=== PATIENT | male | born 1995 | race African-American/Black ===

== ENCOUNTER 2018-11-17 10:34 | Emergency (ER) | payer MEDICAID ==
[~2018-11-17] VITALS: Ht 167.6 cm; Wt 82.0 kg
[2018-11-17] MEDS ORDERED: LIDOCAINE HCL/PF 1% 10 MG/ML 5ML VIAL IJ ONE (11:15)
[2018-11-17] MEDS ORDERED: BACITRACIN ZINC OINT UDPKT TOP ONE (11:15)
[2018-11-17] MEDS ORDERED: HYDROCODONE/ACETAMINOPHEN 5/325MG TABLET PO ONE (11:15)
[2018-11-17] MEDS ORDERED: HYDROCODONE/ACETAMINOPHEN 5/325MG TABLET PO STA (13:26)
[2018-11-17] MEDS ORDERED: IBUPROFEN 800MG TABLET PO ONE (16:15)
[2018-11-17 16:46] VITALS: BP 119/87
== END 2018-11-17 16:51 | disposition home or self-care (01) ==
LOC: ER 10:34
DX: S41.012A Laceration without foreign body of left shoulder, initial encounter (principal); S61.211A Laceration without foreign body of left index finger without damage to nail, initial encounter; S81.811A Laceration without foreign body, right lower leg, initial encounter; S00.83XA Contusion of other part of head, initial encounter; W45.8XXA Other foreign body or object entering through skin, initial encounter; Y93.89 Activity, other specified; Y92.098 Other place in other non-institutional residence as the place of occurrence of the external cause; Y99.8 Other external cause status
CPT/HCPCS: 12002; 73030; 73130; 73590; 99284; A4217; J3490